=== PATIENT | male | born 1975 | race African-American/Black ===

== ENCOUNTER 2019-02-21 19:16 | Emergency (ER) | payer BC ==
[~2019-02-21] VITALS: Ht 167.6 cm; Wt 97.5 kg
[2019-02-21 19:28] VITALS: BP 131/89
--- NOTE | 2019-02-21 19:33 | NUR ---
PT AMBULATED TO BED 7
--- NOTE | 2019-02-21 19:38 | NUR ---
43 Y/O MALE C/O RIGHT INNER KNEE PAIN X2 WEEKS. PT. STATED HE WAS PLAYING SOFTBALL 2 WEEKS AGO AND IT WAS NOT UNTIL A WEEK AGO THAT HE STARTED HAVING KNEE PAIN. PAIN IS A 9/10 THROBBING, CONTINUOUS PAIN. PT TAKEN TYLENOL AND ADVIL NO RELIEF. SIDE RAILSX1. ER MD TO SEE PATIENT. PMH- HTN ALLERGIES- PCN RX-DENIES
--- NOTE | 2019-02-21 19:46 | NUR ---
. AT PATIENT'S BEDSIDE.
[2019-02-21] MEDS ORDERED: IBUPROFEN 800 MG TAB PO ONE (19:50)
--- NOTE | 2019-02-21 20:05 | NUR ---
X-RAY AT BEDSIDE.
[2019-02-21 20:44] VITALS: BP 154/93
== END 2019-02-21 20:44 | disposition home or self-care (01) ==
LOC: MED 19:16
DX: M25.561 Pain in right knee (principal); I10 Essential (primary) hypertension; Z88.0 Allergy status to penicillin
CPT/HCPCS: 73562; 99283; Q0092

== ENCOUNTER 2019-10-25 21:29 | Emergency (ER) | payer BC, OTHER ==
[~2019-10-25] VITALS: Ht 167.6 cm; Wt 100.7 kg
[2019-10-25 21:35] VITALS: BP 169/100
--- NOTE | 2019-10-25 21:46 | NUR ---
PT IN LOBBY, VSS
--- NOTE | 2019-10-25 22:47 | NUR ---
CALLED PT FROM LOBBY, NO RESPONSE.
--- NOTE | 2019-10-25 22:47 | NUR ---
PATIENT LEFT WITHOUT BEING SEEN BY DR. camejo. NO FURTHER CARE PROVIDED FOR PATIENT.
--- NOTE | 2019-10-25 23:02 | NUR ---
pt called from lobby, no response. pt lwbs
== END 2019-10-25 23:02 | disposition left against medical advice (07) ==
LOC: MED 21:29
DX: I10 Essential (primary) hypertension (principal); Z53.21 Procedure and treatment not carried out due to patient leaving prior to being seen by health care provider